=== PATIENT | male | born 1990 | race Hispanic/Latino ===

== ENCOUNTER → 2018-05-16 | Day surgery (SDC) | payer SELFPAY ==
[2018-05-10 11:55] LABS: BASOPHILS # (AUTO) 0.1 (0.0-0.1); BASOPHILS % 0.6 % (0.0-1.0); EOSINOPHILS # (AUTO) 0.2 (0.0-0.4); EOSINOPHILS % 1.8 % (0.0-6.0); HEMATOCRIT 46.5 % (38.2-49.6); HEMOGLOBIN 15.9 g/dL (14.0-18.0); LYMPHOCYTES # (AUTO) 1.9 (1.0-3.2); LYMPHOCYTES % 20.5 % (18.0-39.1); MEAN CORPUSCULAR HEMOGLOBIN 29.6 pg (28-32); MEAN CORPUSCULAR HGB CONC 34.2 g/dL (31-35); MEAN CORPUSCULAR VOLUME 86.6 fL (81-99); MONOCYTES # (AUTO) 0.9 (0.2-0.8); MONOCYTES % 9.4 % (4.4-11.3); NEUTROPHILS # (AUTO) 6.1 (2.1-6.9); NEUTROPHILS % 67.1 % (38.7-80.0); PLATELET COUNT 210 x10e3/uL (140-360); RED BLOOD COUNT 5.37 x10e6/uL (4.3-5.7); RED CELL DISTRIBUTION WIDTH 12.5 % (11.7-14.4)
[2018-05-10 12:09] LABS: ANION GAP 11.2 mmol/L (8-16); BLOOD UREA NITROGEN 11 mg/dL (7-26); BUN/CREATININE RATIO 12 (6-25); CALCIUM 9.5 mg/dL (8.4-10.2); CARBON DIOXIDE 27 mmol/L (22-29); CHLORIDE 101 mmol/L (98-107); CREATININE, SERUM 0.93 mg/dL (0.72-1.25); EST GLOMERULAR FILTRATION RATE > 60 ML/MIN (60-); GLUCOSE 102 mg/dL (74-118); POTASSIUM 4.2 mmol/L (3.5-5.1); SODIUM 135 mmol/L (136-145)
[~2018-05-16] MED LIST: ACETAMIN PO; BACITRACIN 50,000 UNIT VIAL ONE; BETAMETHASONE DISODIUM PHOS 6 MG/ML VIAL ONE; BUPIVACAINE HCL 0.5% INJ 30 ML VIAL INJ ONE; CEFAZOLIN SOD 1 GM/NS 50ML 50 ML IV ONE; DEXAMETHASONE SOD PHOS INJ 4 MG/ML VIAL ONE; FENTANYL CITRATE/PF 100MCG/2 ML INJ ONE; HYDROMORPHONE 2MG/ML 2 MG/ML ML ONE; IBUPROFEN200 MG PO; KETOROLAC TROMETHAMINE 30 MG/ML VIAL ONE; LIDOCAINE HCL 1% LOCAL INJ 20 ML VIAL ONE; LIDOCAINE HCL 2% LOCAL INJ 5 ML SDV VIAL INJ ONE; MIDAZOLAM HCL 2 MG/2 ML VIAL ONE; MUPIROCIN 2% OINT 22 GM TUBE ONE; NEOSTIGMINE 1 MG/ML 10ML VIAL ONE; ONDANSETRON HCL INJ 2MG/ML 2ML 2 MG/ML VIAL ONE; PROPOFOL IV EMULSION 10 MG/ML 20 ML VIAL ONE; SEVOFLURANE INHAL SOLN 250 ML PEN BTL ONE; ULTRAM50 MG PO
--- OUTSIDE RECORDS SUMMARY | 2018-05-16 05:10 | XMS REPORT ---
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 Allergies, Adverse Reactions, Alerts Allergy Name Allergy Type Status Severity Reaction(s) Onset Date Inactive Date Treating Clinician Comments No Known Allergies DA Active U 2011-12-26 00:00:00 Medications This patient has no known medications. Results Test Description Test Time Test Comments Text Results Atomic Results Result Comments - XR TIBIA/FIBULA 2 V RT 2018-05-05 08:28:00 [place]: St: PRE Name: SHARONAMANIRASHID [facility] : 1990 Age/S: 27/M [address] Unit #: [id number] Loc: [place] [address] Phys: Jamison Jaime NP Acct: [id number] Dis Date: Status: PRE ER PHONE #: [phone] Exam Date: 05/05/2018 0816 FAX #: [phone] Reason: twisting injury EXAMS: CPT CODE: [id number] XR TIBIA/FIBUL[place] [address] [place] [id number] Right tibia and fibula, 4 views Location Code: B2 CLINICAL HISTORY: Fall. COMMENTS: AP and lateral views of the right tibia and fibula were obtained. There is an acute, mildly displaced oblique fracture of the lateral malleolus distal fibula and a nondisplaced transverse fracture of the medial malleolus of the distal tibia. Small avulsion fracture suspected along the posterior distal tibia, as well. There is diffuse soft tissue swelling at the ankle. The tibia and fibula proximally are i ntact. IMPRESSION: Acute trimalleolar right ankle fracture. at 0828 Reported and signed by: Rodrigue Shaffer MD CC: Technologist: DI HENNING Date/Time/By: 05/05/2018 (827) : By: [email or web address] PAGE 1 Signed Report [place]: St: PRE Name: RASHID TABOR [facility] : 1990 Age/S: 27/M [address] Unit #: [id number] Loc: [place] [address] Phys: Jamison Jaime NP Acct: [id number] Dis Date: Status: PRE ER PHONE #: [phone] Exam Date: 05/05/2018 08 FAX #: [phone] Reason: twisting injury EXAMS: CPT CODE: [id number] XR TIBIA/FIBULA 2 [place] RT [id number] <Continued> Orig Print D/T: S: 05/05/2018 (0831) PAGE 2 Signed Report - XR ANKLE 3 + V RT 2018-05-05 08:27:00 [place]: St: PRE [facility] [place] [facility] 1990 Age/S: 27/M [address] Unit #: [id number] Loc: [place] [address] Phys: Jamison 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 COMMENTS: AP, lateral, and oblique views of the right ankle were obtained. There is an acute, mildly displaced oblique fracture of the lateral malleolus and a nondisplaced transverse fracture of the medial malleolus. Small avulsion fracture suspected along the posterior distal tibia, as well. There is diffuse soft tissue swelling. IMPRESSION: Acute trimalleolar right ankle fracture. 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
[2018-05-16 11:20] VITALS: BP 142/82
--- NOTE | 2018-05-16 12:08 | Diagnostic Imaging Report ---
Radiographs of the right ankle - 2 views HISTORY: Pain COMPARISON: None available. FINDINGS: Bones: Patient status post open reduction and internal fixation of a medial malleolar and distal fibular fracture. The surgical hardware is intact without evidence of failure or loosening. There is a slightly displaced posterior distal right tibial fracture. Joints: Scattered degenerative change Soft tissues: Soft tissue swelling. Overlying cast. IMPRESSION: Patient status post open reduction and internal fixation of a medial malleolar and distal fibular fracture. The surgical hardware is intact without evidence of failure or loosening. There is a slightly displaced posterior distal right tibial fracture Signed by: Dr. Chandana Moulton M.D. on 05/16/2018 12:05 PM
--- NOTE | 2018-05-16 16:31 | Operative Report ---
DATE OF PROCEDURE: 05/16/2018 SURGEON: Joseph Price DPM PREOPERATIVE DIAGNOSIS: Bimalleolar ankle fracture, right. POSTOPERATIVE DIAGNOSIS: Bimalleolar ankle fracture, right. OPERATIVE PROCEDURE: Open reduction, internal fixation of bimalleolar ankle right fracture. PROCEDURE IN DETAIL: The patient was taken into the operating room, placed on the operative table in supine position. Following induction of general anesthesia by the anesthesiologist, Webril wraps were placed on the patient's right thigh followed by application of right thigh tourniquet. The right lower extremity was then prepped and draped in the usual aseptic manner. Following procedures were then performed. PROCEDURE #1: Open reduction internal fixation of bimalleolar ankle fracture, right foot. Attention was directed to the lateral aspect of the right talotibial joint where a curvilinear incision was performed overlying the fibula. The incision was deepened down to the subcutaneous tissue and periosteum of the fibula. Periosteum was then dissected free, exposing the spiral oblique fracture. Utilizing proper AO technique, a 26 mm fully-threaded 3.5 screw was then used as an interfragmentary screw to allow for proper reduction of the fractured fragment. Then a stabilizing plate with 5 screws was used. The two distal screws were used to be partially threaded and the proximal screws were fully threaded, allowing for proper reduction and stabilization of the fractured fibula. All areas were then copiously flushed with sterile antibiotic solution and suctioned. Attention was then directed to the medial aspect of the right talotibial joint where a curvilinear incision was performed. The incision was deepened down to the level of the periosteum being careful to retract any vital structures and ligate superficial vessels as necessary. The fracture fragment was then clearly visualized and it was reduced utilizing proper AO technique utilizing a 4.0 cannulated screw, 40 mm partially threaded. The fracture fragment was properly reduced. PROCEDURE #2: Intraoperative fluoroscopy was then used to make sure proper alignment and fixation was achieved. All areas were then once again copiously flushed with sterile antibiotic solution, suction and irrigated. The incisions were then closed utilizing 2-0 Vicryl for subcutaneous tissue and periosteum, 3-0 Vicryl for subcutaneous tissue and 3-0 nylon for skin in a horizontal mattress-type fashion. Approximately 15 to 20 mL of 0.5% plain Marcaine plus 10 mL of 1% Xylocaine plain, and 2 to 3 mL of were used to achieve local anesthesia of the above-mentioned surgical area. Sterile dressing was applied. Upon release of thigh tourniquet, blood hyperemia was noted immediate to all digits of the patient's right foot. A properly placed posterior splint, bivalved cast was then applied to keep stabilization of the fracture fragments. The patient was then transferred from the OR to recovery room with vital signs stable, neurovascular status intact. No intraoperative complications were encountered. Blood loss from the surgery was minimal. The patient to remain nonweightbearing with the aid of crutches, keep his foot elevated, and apply an ice pack to the ankle joint area. RUT Marcos/BALTAZARL /[id number]
== END | disposition home or self-care (01) ==
LOC: OR 05:00
PROVIDERS: ATTEND Podiatrist Foot Surgery
DX: S82.841A Displaced bimalleolar fracture of right lower leg, initial encounter for closed fracture (principal); X58.XXXA Exposure to other specified factors, initial encounter; Z01.812 Encounter for preprocedural laboratory examination
CPT/HCPCS: 27814; 36415; 73600; 80048; 85025; C1713 ×9; J0690; J0720; J1100; J1170; J1885; J2001 ×2; J2250; J2405; J2704; J2710